=== PATIENT | male | born 1945 | race Caucasian/White ===

== ENCOUNTER 2022-04-08 12:44 | Outpatient (CLI) | payer MEDICARE, SELFPAY ==
--- NOTE | ~2022-04-08 | MR_ITS ---
EXAMINATION: MR hand LT wo/w con DATE: 04/08/2022 14:08 INDICATION: Ganglion cyst. Suspected soft tissue infection. TECHNIQUE: Magnetic resonance imaging (MRI) of the left hand was performed without and with 15 mL Mul tihance intravenous contrast. Sraws-cn-udfs centered at the carpus and excludes the phalanges. Sequen stone included axial and sagittal PD-weighted FSE and axial, sagittal and coronal PD-weighted FS FSE, c oronal T1-weighted FSE, coronal T1-weighted FS FSE and postcontrast axial, sagittal and coronal T1-we ighted FS FSE. COMPARISON: None FINDINGS: Bone alignment is normal. There is normal marrow signal with no reactive edema, fracture or T1 marrow signal loss or enhancement to suggest osteomyelitis or other pathologic marrow replacing process. 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 No joint effusions. The tri angle fibrocartilage complex and the scapholunate and lunotriquetral ligaments appear normal. The fle xor and extensor tendons are normal. The remaining joint spaces at the wrist and carpus appear relatively preserved. There is an 11 x 10 x 7 mm T2 hyperintense, T1 hypointense, heterogeneously enhancing lesion situated at the anatomic snuf f box between the abductor pollicis longus and extensor pollicis brevis tendons and along the superfi cial margin of the radial artery radial to the trapezium. Flow void is seen extending through the rad ial artery with no definitive flow void identified within the lesion. IMPRESSION: 1. 11 x 10 x 7 mm T2 hyperintense heterogeneously enhancing lesion at the radial aspect of the carpus . Appearance is most suggestive of a ganglion cyst arising from either the triscaphe or first carpal metacarpal joints contain primarily enhancing synovium. Solid enhancing neoplasm or aneurysm/hematoma be considered significantly less likely. 2. No osteomyelitis or specific MR findings to suggest superinfection of there is clinical suspicion could consider ultrasound-guided aspiration. Reviewed, dictated and finalized at location A. WORK ESTIMATOR IMPRESSION: 1. 11 x 10 x 7 mm T2 hyperintense heterogeneously enhancing lesion at the radia l aspect of the carpus. Appearance is most suggestive of a ganglion cyst arisin g from either the triscaphe or first carpal metacarpal joints contain primarily enhancing synovium. Solid enhancing neoplasm or aneurysm/hematoma be considere d significantly less likely. 2. No osteomyelitis or specific MR findings to suggest superinfection of there is clinical suspicion could consider ultrasound-guided aspiration.
== END 2022-04-08 12:45 | disposition home or self-care (01) ==
LOC: ANHIMG 12:49
DX: M67.40 Ganglion, unspecified site (principal)
CPT/HCPCS: 73220; A9577